=== PATIENT | male | born 1955 | race Two or more races ===

== ENCOUNTER 2022-01-29 17:02 | Emergency (ER) | payer SELFPAY ==
[~2022-01-29] VITALS: Ht 167.6 cm; Wt 43.1 kg
--- NOTE | 2022-01-29 18:00 | NUR ---
CALVIN TAYLOR62 "People from [facility] called he was found unresponsive with pinpoint pupils around 1650 given Narcan- wakes up with pain". PLACED ON BED, DROWSY, NOT RESPONDING TO VERBAL STIMULI.
--- NOTE | 2022-01-29 18:45 | NUR ---
BLOOD DRAWN AND SENT TO LAB
[2022-01-29 20:05] LABS: BASOPHILS % (AUTO) 0.1 % (0.0-2.0); EOSINOPHILS % (AUTO) 1.1 % (0.0-6.0); HEMATOCRIT 38 % (39-51); HEMOGLOBIN 12.7 g/dL (13.5-17.5); LYMPHOCYTES # (AUTO) 1.6 K/uL (0.8-4.8); LYMPHOCYTES % (AUTO) 15.1 % (20.0-44.0); MEAN CORPUSCULAR HGB CONC 33 g/dl (31.0-36.0); MEAN CORPUSCULAR VOLUME 92 fL (80-96); MONOCYTES # (AUTO) 0.6 K/uL (0.1-1.30); MONOCYTES % (AUTO) 6.1 % (2.0-12.0); NEUTROPHILS % (AUTO) 77.6 % (43.0-81.0); PLATELET COUNT (AUTO) 192 K/uL (150-450); RED BLOOD CELL COUNT(AUTO) 4.13 MIL/uL (4.5-6.0); WHITE BLOOD COUNT (AUTO) 10.3 K/uL (4.3-11.0)
[2022-01-29 20:11] LABS: CARBON DIOXIDE 28 mmol/L (21-32); CHLORIDE 102 mmol/L (98-107); CREATININE 0.8 mg/dL (0.6-1.3); GLUCOSE 140 mg/dL (74-106); POTASSIUM 4.6 mmol/L (3.5-5.1); SODIUM SERUM 135 mmol/L (136-145); UREA NITROGEN, BLOOD 18 mg/dL (7-18)
[2022-01-29 20:22] LABS: ALANINE AMINOTRANSFERASE 21 U/L (12-78); ALBUMIN 3.2 g/dL (3.4-5.0); ALKALINE PHOSPHATASE 55 U/L (46-116); ASPARTATE AMINOTRANSFERASE 24 U/L (15-37); BILIRUBIN,DIRECT 0.1 mg/dL (0.0-0.2); BILIRUBIN,TOTAL 0.4 mg/dL (0.2-1.0); TOTAL PROTEIN, SERUM 7.6 g/dL (6.4-8.2)
[2022-01-29 20:25] LABS: ACETAMINOPHEN 0 ug/ml (10-30); ALCOHOL, BLOOD < 3 mg/dL (0-0)
--- NOTE | 2022-01-29 20:36 | NUR ---
[address] [facility] GE[facility]TE LOCKER ATTENDANT OF [facility] [phone]
[2022-01-29] MEDS ORDERED: NALO4SPR BNOSTRILS (23:27)
--- NOTE | 2022-01-30 06:08 | NUR ---
Patient discharged to home in stable condition. Written and verbal after care instructions given. Patient verbalizes understanding of instruction.
[2022-01-30 06:09] VITALS: BP 130/70
== END 2022-01-30 06:09 | disposition home or self-care (01) ==
LOC: ER 17:07
DX: T40.5X1A Poisoning by cocaine, accidental (unintentional), initial encounter (principal); R41.82 Altered mental status, unspecified; Z59.00 Homelessness unspecified; Y92.89 Other specified places as the place of occurrence of the external cause
CPT/HCPCS: 36415; 80048-TC; 80076-TC; 85025-TC; G0480